=== PATIENT | male | born 2000 | race Caucasian/White ===

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

== ENCOUNTER 2023-02-14 17:27 | Emergency (ER) | payer BC, SELFPAY ==
--- NOTE | ~2023-02-14 | XR_ITS ---
Portable chest x-ray Comparison: 04/06/2011 Clinical History: Epigastric pain Findings: Lungs are clear, without focal consolidation or pleural effusion. Cardiomediastinal silho uette is stable. Bones and soft tissues are unremarkable. Impression: Normal chest. Reviewed, dictated and finalized at [facility]. Impression: Normal chest.
--- NOTE | ~2023-02-14 | CT_ITS ---
CT of the Abdomen and Pelvis: Indication: Epigastric pain Technique: 2.5 mm axial scans were obtained through the abdomen and pelvis following intravenous adm inistration of 100 cc of Omnipaque 350. Dose reduction technique was used on this scan by utilizing a utomated exposure control and iterative reconstruction technique. The dose-length product (DLP) was 2 29.62 mGy-cm. Findings: Scans through the lung bases are unremarkable. The liver, spleen, pancreas, gallbladder, adrenals and kidneys are within normal limits. No evidence of aortic aneurysm. No lymphadenopathy. No bowel obstruction or bowel wall thickening. There is no evidence to suggest acute appendicitis. Images through the pelvis were performed. Urinary bladder unremarkable. Prostate gland and seminal ve sicles are unremarkable. No ascites. Impression: No significant abnormalities seen. Reviewed, dictated and finalized at [facility]. Impression: No significant abnormalities seen.
[2023-02-14 17:29] VITALS: BP 123/74; PULSE 63; RESP 20; TEMP 36.9; O2SAT 99
[2023-02-14 17:49] LABS: Glucose Point of Care 138 mg/dl (65-105)
[2023-02-14 18:24] LABS: Basophils Absolute Auto 0.1 K/mm3 (0.0-0.1); Basophils Percent Auto 0.4 % (0.2-1.2); Eosinophils Absolute Auto 0.1 K/mm3 (0-0.3); Eosinophils Percent Auto 0.3 % (0-4.4); Hematocrit 44.3 % (42.0-52.0); Hemoglobin 14.6 g/dL (14.0-18.0); Immature Granulocyte Absolute 0.08 K/mm3 (0.00-0.031); Immature Granulocyte Percent A 0.4 % (0-0.5); Lymphocytes Absolute Auto 1.29 K/mm3 (0.9-3.2); Lymphocytes Percent Auto 6.7 % (18.3-44.2); Mean Corpuscular Hemoglobin 28.2 pg (26-34); Mean Corpuscular Volume 85.7 fl (80-100); Mean Platelet Volume 10.7 fl (7.4-10.4); Monocytes Absolute Auto 0.9 K/mm3 (0.1-0.6); Monocytes Percent Auto 4.7 % (2.6-8.5); Neutrophils Absolute Auto 16.8 K/mm3 (1.3-6.7); Neutrophils Percent Auto 87.5 % (45.5-73.1); Platelet Count Result 311 k/mm3 (150-375); Red Blood Count 5.17 M/mm3 (4.6-6.20); Red Cell Distribution Width 12.6 % (11.5-14.5); White Blood Count 19.2 K/mm3 (4.5-10.0)
[2023-02-14] MEDS: ONDANSETRON INJ 4 MG/2 ML VIAL IV PUSH ×2 (18:33→23:45)
[2023-02-14] MEDS: SODIUM CHLORIDE 0.9% IV 1,000 ML 999 ML IV CONT ×2 (18:33→19:12)
[2023-02-14 18:34] VITALS: BP 113/75; PULSE 63; RESP 12; O2SAT 97
[2023-02-14 18:44] LABS: Alanine Aminotransferase 24 U/L (6-50); Albumin Level 5.6 g/dL (3.5-5.1); Alkaline Phosphatase 117 U/L (38-126); Anion Gap 18 mmol/L (8-16); Aspartate Amino Transferase 30 U/L (17-59); Bilirubin,Total 0.6 mg/dL (0.2-1.3); Blood Urea Nitrogen 13 mg/dL (9-20); Calcium 10.3 mg/dL (8.4-10.2); Carbon Dioxide 25 mmol/L (22-30); Chloride 95 mmol/L (98-107); Estimated CRCL calculation 103 ml/min; Estimated Glomerular Filt Rate > 60; Glucose 136 mg/dL (65-110); Sodium 138 mmol/L (137-145)
[2023-02-14 19:11] VITALS: BP 125/74; PULSE 71; RESP 10; TEMP 37.3; O2SAT 96
[2023-02-14] MEDS: KETOROLAC 30 MG/ML VIAL (*BKC) IV PUSH (19:14)
[2023-02-14 19:35] LABS: Lipase 83 U/L (23-300)
--- NOTE | 2023-02-14 20:49 | ED.NAVMDI ---
HPI - Nausea/Vomiting/Diarrhea General Chief complaint: Nausea/Vomiting/Diarrhea Stated complaint: Pain Med detox Time Seen by Provider: 02/14/23 17:37 History of Present Illness HPI Narrative: 22-year-old male reports with his parents for evaluation of nausea and vomiting today. Patient states he is trying to taper himself off of Percocet. States he has been snorting Percocet for a while . Reports his last dose was a little bit last night and he has been trying to wean himself off for the past 10 days. States he has been obtaining the Percocets from off the streets. Reports multiple episodes of vomiting today along with body aches. He denies diarrhea, chest pain or shortness of breath, urinary complaints, back pain, cough or congestion. He does report epigastric abdominal pain which she believes is secondary to vomiting. 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 Denies alcohol and other drug use. Related Data Allergies Allergy/AdvReac Type Severity Reaction Status Date / Time No Known Allergies Allergy Unknown Verified 10/12/04 18:18 Review of Systems Review of Systems: CONSTITUTIONAL: Denies fever, chills EYES: Denies visual changes, redness, or discharge. ENT: Denies rhinorrhea, congestion, sore throat, or otalgia. CARDIOVASCULAR: Denies chest pain, palpitations, or edema. RESPIRATORY: Denies cough or dyspnea. GASTROINTESTINAL: See HPI GENITOURINARY: Denies dysuria or hematuria. SKIN: Denies rash or itching. MUSCULOSKELETAL: Denies back pain, joint pain, or myalgia. NEUROLOGIC: Denies headache, numbness, dizziness, or weakness. PSYCHIATRIC: Denies anxiety or depression. Exam Narrative: GENERAL: Patient appears uncomfortable, laying in exam bed. HEAD: Normocephalic EYES: PERRLA ENT: Nares clear. Mucous membranes moist. Oropharynx without tonsillar hypertrophy exudate or other lesions. NECK: Supple. CHEST: No respiratory distress. Clear to auscultation, no adventitious breath sounds. HEART: Regular rate and rhythm. No murmur heard. Normal peripheral pulses. ABDOMEN: Normal active bowel sounds. Abdomen soft with tenderness and guarding in epigastrium. No rebound or rigidity. No peritoneal signs. No CVA tenderness. EXTREMITIES: Normal range of motion. No edema. SKIN: Warm, dry, no rash. NEURO: No focal deficits. Alert and oriented x3. PSYCH: Normal mood and affect. Course Vital Signs Vital signs: Vital Signs Temperature 98.4 F 02/14/23 17:29 Pulse Rate 63 02/14/23 17:29 Respiratory Rate 20 02/14/23 17:29 Blood Pressure 123/74 02/14/23 17:29 Pulse Oximetry 99 02/14/23 17:29 Oxygen Delivery Room Air 02/14/23 17:29 Temperature 99.3 F 02/14/23 21:37 Pulse Rate 73 02/14/23 23:33 Respiratory Rate 15 02/14/23 23:33 Blood Pressure 134/68 02/14/23 23:33 Pulse Oximetry 100 02/14/23 23:33 Oxygen Delivery Room Air 02/14/23 17:29 MDM - Nausea/Vomiting/Diarrhea MDM Narrative Medical decision making narrative: 22-year-old male reports with his parents for evaluation of nausea and vomiting today after he has been trying to wean himself off of Percocets, last Percocet was yesterday. Vital stable. Exam significant for the above. Labs significant for leukocytosis of 19.2.Chloride is 95, calcium is 10.3, glucose 136, protein and albumin elevated, all likely secondary to dehydration. Urinalysis again shows signs of dehydration, no UTI. UDS negative. CT abdomen pelvis obtained showing no acute intra-abdominal abnormality. Chest x-ray unremarkable. Leukocytosis is likely stress-induced secondary to vomiting. He received 2 L of fluids and Zofran with improvement in symptoms and is tolerating p.o. intake. Labs and imaging discussed with patient and family present at bedside. Shared decision making regarding discharging patient home with maren Howard, pt states he feels comfortable going home. Zofran sent to pharmacy. Encouraged increased flui
--- NOTE | 2023-02-14 21:30 | PC.NURSE ---
Patient states that he feels like he has to urinate, but nothing is coming out. Patient also states that the last time urinated normally was last night. Per EDP PA Nicole bladder scan the patient. Upon scanning the patient a reading of 213mL was obtained.
--- NOTE | 2023-02-14 21:32 | PC.NURSE ---
Patient refused straight catheter for urine specimen.
[2023-02-14 21:37] VITALS: BP 106/82; PULSE 85; RESP 16; TEMP 37.4; O2SAT 98
[2023-02-14 22:10] LABS: Appearance Urine Clear (Clear); Bacteria Urine None Seen /hpf; Bilirubin Urine Negative (Negative); Blood Urine Negative (Negative); Color Urine Yellow (Yellow); Glucose Urine UA Negative (Negative); Ketones Urine 3+ mg/dL (Negative); Leukocyte Esterase Ur Negative LEU/UL (Negative); Nitrate Urine Negative (Negative); Non Pathogenic Casts 0-2; Protein Urine 1+ mg/dL (Negative); Squamous Epithelial Cell Urine None seen /hpf (Few); WBC Urine 0-5 /hpf
[2023-02-14 22:27] LABS: Specific Grav Ur 1.091 (1.001-1.035)
[2023-02-14 22:28] LABS: Add Urine Microscopic? YES
[2023-02-14 23:23] LABS: Amphetamine Screen Urine Negative (Negative); Barbiturate Screen Urine Negative (Negative); Benzodiazepines Screen Urine Negative (Negative); Cannabinoid Screen Urine Negative (Negative); Cocaine Screen Urine Negative (Negative); Methadone Screen Urine Negative (Negative); Opiate Screen Urine Negative (Negative); Phencyclidine Screen Urine Negative (Negative)
[2023-02-14 23:33] VITALS: BP 134/68; PULSE 73; RESP 15; O2SAT 100
== END 2023-02-14 23:52 | disposition home or self-care (01) ==
PROVIDERS: Emergency Provider Physician Assistant; PCP Family Medicine Adolescent Medicine
DX: F11.13 Opioid abuse with withdrawal (principal)
CPT/HCPCS: 36415; 71045; 74177; 80053; 80307; 81001; 82948; 83690; 85025; 96361; 96374; 96375; 96376; 99284; J1885; J2405; J7030; Q9967